=== PATIENT | male | born 1960 | race Caucasian/White ===

== ENCOUNTER 2020-10-23 13:33 | Emergency (ER) | payer OTHER ==
[2020-10-23 13:49] VITALS: BP 179/81; PULSE 87; TEMP 98.3; BMI 27.8
[2020-10-23] MEDS ORDERED: IBUPROFEN 600 MG TABLET (FP) PO ONE ×2 (15:01→15:20)
== END 2020-10-23 17:04 | disposition home or self-care (01) ==
LOC: JER 13:33
DX: U07.1 COVID-19 (principal)
CPT/HCPCS: 71046-TC-FY; 99284-25